=== PATIENT | male | born 1970 | race Caucasian/White ===

== ENCOUNTER 2022-03-12 08:38 | Emergency (ER) | payer MEDICAID, OTHER ==
[~2022-03-12] VITALS: Ht 182.9 cm; Wt 113.0 kg
[~2022-03-12 08:38] MED LIST: CYCL-1 PO; NAPR-1154 PO
[2022-03-12 08:42] VITALS: BP 152/94
[2022-03-12] MEDS ORDERED: PENI250T2 PO (10:24)
[2022-03-12] MEDS ORDERED: NAPR-56 PO (10:24)
== END 2022-03-12 10:58 | disposition home or self-care (01) ==
LOC: ER 08:39
DX: K08.89 Other specified disorders of teeth and supporting structures (principal); Z79.899 Other long term (current) drug therapy
CPT/HCPCS: 99283